=== PATIENT | female | born 1960 | race African-American/Black ===

== ENCOUNTER 2017-09-12 12:48 | Observation (INO) | payer OTHER ==
[~2017-09-12] VITALS: Ht 167.6 cm; Wt 106.6 kg
[2017-09-12 13:24] LABS: Hematocrit 45.2 % (36.0-46.0); Hemoglobin 15.1 g/dL (12.2-16.2); Mean Corpuscular Hgb Conc. 33.4 g/dL (32.0-36.0); Mean Corpuscular Volume 92.7 fL (80.0-100.0); Platelet Count (auto) 214 10^3/uL (140-450); Red Blood Cells 4.88 10^6/uL (4.0-5.20); Red Cell Distribution Width 13.8 % (11.8-14.3); White Blood Cell 5.7 10^3/uL (4.4-10.8)
[2017-09-12 13:29] LABS: Band Neutrophils % (manual) 0
[2017-09-12 13:30] LABS: Basophils % (manual) 0 (0.0-2.0); Blast Cells 0; Metamyelocytes % 0; Myelocytes % 0; Promyelocytes % 0; Reactive Lymphocytes 0
[2017-09-12 13:33] LABS: Alanine Aminotransferase 17 U/L (13-56); Albumin 3.6 g/dL (3.4-5.0); Anion Gap 8 (5-15); Aspartate Aminotransferase 14 U/L (15-37); BUN/Creatinine Ratio 13.9; Blood Urea Nitrogen 10 mg/dL (7-18); Calcium 8.8 mg/dL (8.5-10.1); Carbon Dioxide 26 mmol/L (21-32); Chloride 107 mmol/L (98-107); GFR African American 107 mL/min; GFR Non-African American 88 mL/min; Glucose 89 mg/dL (74-106); Sodium 141 mmol/L (136-145)
[2017-09-12 13:37] LABS: Alkaline Phosphatase 66 U/L (45-117); Bilirubin, Total 0.8 mg/dL (0.2-1.0); Total Protein 7.3 g/dL (6.4-8.2)
[2017-09-12 14:02] LABS: Eosinophils % (manual) 3 (0-7); Lymphocytes % (manual) 31 (10.0-50.0); Monocytes % (manual) 10 (0-12)
[2017-09-12 14:32] LABS: INR 1.05 (0.9-1.15); Prothrombin Time 11.5 sec (9.37-12.3)
[2017-09-12] MEDS ORDERED: IOHEXOL 350 MG/ML 100ML IJ ONE (16:16)
[2017-09-12 17:17] VITALS: BP 143/72
== END 2017-09-13 00:44 | disposition home or self-care (01) | DRG 313 ==
LOC: ER 12:48 → OVERFLOW 13:55 → ER 21:20
PROVIDERS: ADMIT Family Medicine; ATTEND Family Medicine
DX: R07.89 Other chest pain (principal); G89.29 Other chronic pain; M25.561 Pain in right knee; Z88.0 Allergy status to penicillin
CPT/HCPCS: 36415; 71046; 71275; 80053; 83735; 83880; 84443; 84484; 85007; 85027; 85379; 85610; 85730; 93005; 94761; 99285; G0378; Q9967